=== PATIENT | male | born 1995 ===

== ENCOUNTER 2018-08-24 18:27 | Emergency (ER) | payer OTHER ==
[2018-08-24 19:03] VITALS: BP 118/77; PULSE 71; TEMP 98.2; O2SAT 100
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
[2018-08-24] MEDS ORDERED: Bacitracin 500 Units/gm Oint Foilpak UD TOP STA (19:41)
[2018-08-24 20:51] VITALS: RESP 20
--- NOTE | 2018-08-25 09:32 | RAD ---
Date of service: 08/24/2018 PROCEDURE: Right Knee Radiographs. HISTORY: injury COMPARISON: None. FINDINGS: BONES: No acute fracture or destructive bony lesion identified. JOINTS: Normal. No osteoarthritis. JOINT EFFUSION: None. OTHER FINDINGS: None. IMPRESSION: Normal radiographs of the right knee.
--- NOTE | 2018-08-25 09:32 | RAD ---
Date of service: 08/24/2018 PROCEDURE: Radiographs of the Lumbar Spine. HISTORY: injury COMPARISON: No prior. FINDINGS: BONES: Straightened curvature. No fracture or spondylolisthesis identified. DISC SPACES: Limited disc height loss L4-5 with remaining intervertebral disc heights as well as vertebral body heights normal. No destructive bony lesion appreciable. OTHER FINDINGS: None. IMPRESSION: Straightened curvature. No fracture or spondylolisthesis identified. 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
--- NOTE | 2018-08-25 09:34 | RAD ---
Date of service: 08/24/2018 PROCEDURE: Radiographs of the left elbow. HISTORY: injury COMPARISON: No prior. FINDINGS: BONES: No acute fracture or destructive bony lesion identified. JOINTS: Normal. No osteoarthritis. SOFT TISSUES: Normal. JOINT EFFUSION: None. OTHER FINDINGS: None IMPRESSION: Unremarkable radiographs of the left elbow.
== END 2018-08-24 20:50 | disposition home or self-care (01) ==
LOC: C.ER 18:27
DX: S80.01XA Contusion of right knee, initial encounter (principal); S50.02XA Contusion of left elbow, initial encounter; S39.012A Strain of muscle, fascia and tendon of lower back, initial encounter; V03.90XA Pedestrian on foot injured in collision with car, pick-up truck or van, unspecified whether traffic or nontraffic accident, initial encounter; Y92.410 Unspecified street and highway as the place of occurrence of the external cause